=== PATIENT | male | born 1995 | race African-American/Black ===

== ENCOUNTER 2017-07-01 14:42 | Emergency (ER) | payer SELFPAY | END 2017-07-01 15:23 | disposition home or self-care (01) | LOC: NAV ERS 14:42 | DX: S83.91XA Sprain of unspecified site of right knee, initial encounter (principal); X50.1XXA Overexertion from prolonged static or awkward postures, initial encounter | CPT/HCPCS: 99283 ==

== ENCOUNTER 2018-04-12 16:39 | Emergency (ER) | payer SELFPAY | END 2018-04-12 17:35 | disposition home or self-care (01) | LOC: NAV ERS 16:39 | DX: R51 Headache (principal) | CPT/HCPCS: 99283 ==

== ENCOUNTER 2018-08-14 21:17 | Emergency (ER) | payer SELFPAY ==
[2018-08-14] MEDS ORDERED: Sodium Chloride 0.9% 1,000 ML ONE (21:53)
[2018-08-14] MEDS ORDERED: Promethazine HCl 25 MG/ML VIAL ONE ×2 (21:53→23:01)
[2018-08-14] MEDS ORDERED: diphenhydrAMINE 50 MG/ML VIAL ONE (21:53)
[2018-08-14 22:15] LABS: Eosinophils 4 % (0-10); Hemoglobin 15.7 g/dL (14.0-18.0); Lymphocytes 58 % (21-51); MDiff Complete? YES; Mean Corpuscular HGB CONC 32.2 g/dL (32.0-36.0); Mean Corpuscular Hemoglobin 28.1 pg (27.0-31.0); Mean Corpuscular Volume 87.3 fL (78.0-98.0); Mean Platelet Volume 7.6 fL (7.4-10.4); Monocytes 10 % (0-10); Neutrophil 28 % (42-75); Platelet Count 196 thou/uL (130-400); Platelet Morphology Comment Appears Adequate; RBC Morphology Normal; Red Blood Cell (RBC) Count 5.58 mill/uL (4.70-6.10); White Blood Cell (WBC) Count 5.4 thou/uL (4.8-10.8)
[2018-08-14 22:24] LABS: ALT (SGPT) 19 U/L (8-55); AST (SGOT) 17 U/L (5-34); Albumin 4.2 g/dL (3.5-5.0); Alkaline Phosphatase 64 U/L (40-150); Anion Gap 15 mmol/L (10-20); BUN (Urea Nitrogen) 10 mg/dL (8.9-20.6); Bilirubin, Total 0.6 mg/dL (0.2-1.2); CRP (Inflammatory) Less than 0.50 mg/dL (= or < 0.5); Calc. Creatinine Clearance 0 mL/min (70-130); Calcium 9.5 mg/dL (7.8-10.44); Carbon Dioxide 25 mmol/L (22-29); Chloride 105 mmol/L (98-107); Estimated GFR-MDRD Greater than 90; Globulin 2.9 g/dL (2.4-3.5); Glucose 95 mg/dL (70-105); Potassium 3.8 mmol/L (3.5-5.1); Protein, Total 7.1 g/dL (6.0-8.3); Sodium 141 mmol/L (136-145)
[2018-08-14] MEDS ORDERED: Sodium Chloride 0.9% 500 ML ONE (23:01)
[2018-08-14] MEDS ORDERED: Ketorolac Tromethamine 30 MG/ML VIAL ONE (23:01)
== END 2018-08-15 00:05 | disposition home or self-care (01) ==
LOC: NAV ERS 21:17
DX: R51 Headache (principal)
CPT/HCPCS: 36415; 80053; 85025; 86140; 96365; 96366; 96375; J1200; J1885; J2550; J7050

== ENCOUNTER 2024-06-01 18:06 | Emergency (ER) | payer BC, SELFPAY ==
[2024-06-01] MEDS ORDERED: Ibuprofen 800 MG TAB ONE (18:22)
== END 2024-06-01 18:36 | disposition home or self-care (01) ==
LOC: NAV ERS 18:06
DX: M94.0 Chondrocostal junction syndrome [Tietze] (principal)
CPT/HCPCS: 93005; 99284